=== PATIENT | female | born 2000 | race African-American/Black ===

== ENCOUNTER 2021-04-16 05:43 | Emergency (ER) | payer OTHER ==
[~2021-04-16] VITALS: Ht 152.4 cm; Wt 91.4 kg
[2021-04-16] MEDS ORDERED: ACETAMINOPHEN 325 MG TAB PO ONE (07:25)
[2021-04-16] MEDS ORDERED: KETOROLAC 30 MG/ML 1ML VIAL IM ONE (07:25)
[2021-04-16] MEDS ORDERED: NAPR-837 PO (07:55)
[2021-04-16 08:45] VITALS: BP 118/73
== END 2021-04-16 09:02 | disposition home or self-care (01) ==
LOC: M ED 05:43
DX: S39.012A Strain of muscle, fascia and tendon of lower back, initial encounter (principal); X50.0XXA Overexertion from strenuous movement or load, initial encounter; Y92.9 Unspecified place or not applicable; Y93.89 Activity, other specified; Y99.9 Unspecified external cause status
CPT/HCPCS: 96372; 99283; J1885